=== PATIENT | male | born 1995 | race Caucasian/White ===

== ENCOUNTER 2016-06-11 11:07 | Emergency (ER) | payer BC ==
[~2016-06-11] VITALS: Ht 193 cm; Wt 87.9 kg
[~2016-06-11 11:07] MED LIST: ADVI200T PO; ALBU8I INH; BENZ100 PO; VENTAER INH; ZITH250T PO
[2016-06-11 11:35] VITALS: BP 137/86; PULSE 90; RESP 16; TEMP 99.6; O2SAT 98
[2016-06-11] MEDS ORDERED: VENTAER INH (11:51)
[2016-06-11] MEDS ORDERED: ALBUAER3 INH (11:51)
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
== END 2016-06-11 12:40 | disposition home or self-care (01) ==
LOC: PHEFT 11:07
DX: B34.9 Viral infection, unspecified (principal); K13.70 Unspecified lesions of oral mucosa; R50.9 Fever, unspecified; R09.81 Nasal congestion; Z87.09 Personal history of other diseases of the respiratory system; Z87.39 Personal history of other diseases of the musculoskeletal system and connective tissue; Z86.69 Personal history of other diseases of the nervous system and sense organs; Z87.891 Personal history of nicotine dependence
CPT/HCPCS: 99283

== ENCOUNTER 2017-05-27 09:02 | Emergency (ER) | payer BC ==
[~2017-05-27] VITALS: Ht 193 cm; Wt 88.0 kg
[~2017-05-27 09:02] MED LIST changes: -ADVI200T PO; -ALBU8I INH; +ALBUAER3 INH; -BENZ100 PO; -ZITH250T PO
[2017-05-27 09:11] VITALS: BP 121/75; PULSE 73; RESP 16; TEMP 98.5; O2SAT 98
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
[2017-05-27] MEDS ORDERED: SODIUM CHLOR 0.9% 1000 ML INJ 1,000 ML IV ONE ×2 (09:45)
[2017-05-27] MEDS ORDERED: ONDANSETRON HCL 4 MG/2 ML VIAL IV PUSH ONE (09:45)
[2017-05-27 10:08] LABS: AUTOMATED NEUTROPHIL # 7.4 TH/MM3 (1.8-7.7); BASOPHIL # 0.1 TH/MM3 (0-0.2); BASOPHIL % 1.5 % (0.0-2.0); EOSINOPHIL # 0.2 TH/MM3 (0-0.4); EOSINOPHIL % 1.6 % (0.0-4.0); HEMATOCRIT 43.1 % (39.0-51.0); HEMOGLOBIN 14.5 GM/DL (13.0-17.0); LYMPH % 13.5 % (9.0-44.0); LYMPHOCYTE # 1.3 TH/MM3 (1.0-4.8); MEAN CELL VOLUME 89.4 FL (80.0-100.0); MEAN CORPUSCULAR HGB CONC 33.6 % (32.0-36.0); MEAN PLATELET VOLUME 8.5 FL (7.0-11.0); MONOCYTE # 0.6 TH/MM3 (0-0.9); NEUT % 77.4 % (16.0-70.0); PLATELET COUNT 260 TH/MM3 (150-450); RED BLOOD COUNT 4.82 MIL/MM3 (4.50-5.90); RED CELL DISTRIBUTION WIDTH 11.7 % (11.6-17.2); WHITE BLOOD COUNT 9.6 TH/MM3 (4.0-11.0)
[2017-05-27 10:16] LABS: CHLORIDE 108 MEQ/L (98-107); SODIUM (NA) 140 MEQ/L (136-145)
[2017-05-27 10:20] VITALS: BP 107/71; PULSE 72; RESP 16; O2SAT 98
[2017-05-27 10:21] LABS: ALBUMIN 3.8 GM/DL (3.4-5.0); BICARBONATE 27.2 MEQ/L (21.0-32.0); BLOOD UREA NITROGEN 15 MG/DL (7-18); CALCIUM 8.6 MG/DL (8.5-10.1); GLUCOSE,RANDOM 98 MG/DL (74-106)
[2017-05-27 10:24] LABS: ALT (GPT) 26 U/L (12-78); AST (GOT) 28 U/L (15-37)
[2017-05-27 10:25] LABS: CREATININE 0.98 MG/DL (0.60-1.30); GLOMERULAR FILTRATION RATE 95 ML/MIN (>89)
[2017-05-27 10:26] LABS: TOTAL BILIRUBIN ADULT 0.7 MG/DL (0.2-1.0); TOTAL PROTEIN 7.2 GM/DL (6.4-8.2)
[2017-05-27 10:30] LABS: ALKALINE PHOSPHATASE 50 U/L (45-117)
[2017-05-27] MEDS ORDERED: ZOFR4TAB3 SL (10:37)
[2017-05-27 11:09] LABS: HYPERSEGMENTED POLYS 1+ (NORMAL)
[2017-05-27 11:22] VITALS: BP 100/65
== END 2017-05-27 11:30 | disposition home or self-care (01) ==
LOC: PHED 09:02
DX: B34.9 Viral infection, unspecified (principal); F84.0 Autistic disorder; J45.909 Unspecified asthma, uncomplicated
CPT/HCPCS: 80053; 85025; 96361; 96374; 99284; J2405; J7030

== ENCOUNTER 2017-09-02 10:22 | Emergency (ER) | payer BC ==
[2017-09-02 11:19] LABS: BILIRUBIN, URINE NEG (NEG); BLOOD, URINE NEG (NEG); GLUCOSE,URINE NEG (NEG); KETONE, URINE TRACE mg/dL (NEG); NITRITE,URINE NEG (NEG); URINE COLOR YELLOW (YELLW/STRAW); URINE LEUKOCYTE ESTERASE NEG (NEG)
[2017-09-02 11:20] LABS: AUTOMATED NEUTROPHIL # 5.3 TH/MM3 (1.8-7.7); BASOPHIL # 0.1 TH/MM3 (0-0.2); BASOPHIL % 0.9 % (0.0-2.0); EOSINOPHIL # 0.1 TH/MM3 (0-0.4); EOSINOPHIL % 1.5 % (0.0-4.0); HEMATOCRIT 46.4 % (39.0-51.0); HEMOGLOBIN 15.5 GM/DL (13.0-17.0); LYMPH % 21.7 % (9.0-44.0); LYMPHOCYTE # 1.7 TH/MM3 (1.0-4.8); MEAN CELL VOLUME 88.9 FL (80.0-100.0); MEAN CORPUSCULAR HEMOGLOBIN 29.7 PG (27.0-34.0); MEAN CORPUSCULAR HGB CONC 33.4 % (32.0-36.0); MEAN PLATELET VOLUME 8.5 FL (7.0-11.0); MONO % 5.4 % (0.0-8.0); MONOCYTE # 0.4 TH/MM3 (0-0.9); NEUT % 70.5 % (16.0-70.0); PLATELET COUNT 264 TH/MM3 (150-450); RED BLOOD COUNT 5.22 MIL/MM3 (4.50-5.90); WHITE BLOOD COUNT 7.6 TH/MM3 (4.0-11.0)
[2017-09-02 11:22] LABS: HEMO FLAGS AUTO DIFF
[2017-09-02 11:24] LABS: CHLORIDE 107 MEQ/L (98-107); POTASSIUM 3.9 MEQ/L (3.5-5.1); SODIUM (NA) 139 MEQ/L (136-145)
[2017-09-02 11:27] LABS: BARBITURATES, URINE NEG (NEG); BENZODIAZEPINE,URINE NEG (NEG); COCAINE, URINE NEG (NEG); RBC, URINE 0-3 /hpf (0-3); WBC, URINE 0-2 /hpf (0-5)
[2017-09-02 11:28] LABS: AMPHETAMINE, URINE NEG (NEG); BACTERIA, URINE OCC /hpf; CANNABINOIDS, URINE POS (NEG); COMMENT (UR) CULT NOT INDICATED; CULTURE IF INDICATED CULT NOT INDICATED
[2017-09-02 11:29] LABS: ANION GAP 6 MEQ/L (5-15); BICARBONATE 26.1 MEQ/L (21.0-32.0); BLOOD UREA NITROGEN 15 MG/DL (7-18); CALCIUM 8.9 MG/DL (8.5-10.1); GLUCOSE,RANDOM 89 MG/DL (74-106)
[2017-09-02 11:33] LABS: GLOMERULAR FILTRATION RATE 75 ML/MIN (>89)
[2017-09-02 11:49] LABS: PLATELET ESTIMATE SMEAR NORMAL (NORMAL); PLATELET MORPHOLOGY NORMAL (NORMAL); SCAN/DIFF AUTO DIFF CONFIRMED
== END 2017-09-02 13:08 | disposition home or self-care (01) ==
LOC: PHED 10:22
DX: B34.9 Viral infection, unspecified (principal); F12.10 Cannabis abuse, uncomplicated; J45.909 Unspecified asthma, uncomplicated; F84.0 Autistic disorder; Z87.891 Personal history of nicotine dependence
CPT/HCPCS: 80048; 80307; 81001; 84443; 85025; 87804; 87804-59; 99283